=== PATIENT | male | born 1985 | race Caucasian/White ===

== ENCOUNTER 2025-08-18 10:59 | Emergency (ER) | payer OTHER, SELFPAY ==
[2025-08-18 11:21] VITALS: BP 148/73; PULSE 72; RESP 16; TEMP 36.3; O2SAT 98; BMI 24.5
--- NOTE | 2025-08-18 12:23 | ED.GENADULT ---
HPI - General Adult General Date Seen: 08/18/25 Chief complaint: Eye Problems Stated complaint: Flashing lights in R eye Time Seen by Provider: 08/18/25 11:57 History of Present Illness HPI narrative: Patient is a 40-year-old here visiting from [place]. He has been having difficulty with his right eye since Tuesday. Initially says he noticed flashing lights on the periphery of his vision kind of all the way around when he was moving his eyes. In a flashing lights went away as of Tuesday but then he started to notice floaters, and then this morning had some or flashing lights at about 2:00 a.m. in his vision on the right. Left eye seems fine, he does have a cataract on that side that has not yet been fixed. He has had cataract repair on the right eye are ready. His vision seems generally a little fuzzy in the right eye, and is affected by floaters when they were in the right spot. No eye pain, no other complaints. No significant medical history, not anticoagulated. Related Data Home Medications ?Medication ?Instructions ?Recorded ?Confirmed budesonide-formoterol HFA 80 1 inh inhalation BID PRN 08/18/25 08/18/25 mcg-4.5 mcg/actuation aerosol inhaler (Breyna) Allergies Allergy/AdvReac Type Severity Reaction Status Date / Time No Known Drug Allergies Allergy Verified 08/18/25 11:27 Exam Narrative: Exam Narrative: Vital signs reviewed In general, alert, nontoxic male. Eyes: Pupils are equal and reactive bilaterally, extraocular movements are full. Conjunctivae are normal On nondilated exam it is difficult to see significant amount of his retina, he has fairly light colored eyes and significant pupillary constriction. No obvious abnormalities. Const: Vital Signs, click to edit/add: Vital Signs - 24 hr 08/18/25 11:21 Temperature 97.4 F L Pulse Rate [Pulse Oximeter] 72 Respiratory Rate 16 Blood Pressure [Ri ght Upper Arm] 148/73 H Pulse Oximetry 98 Oxygen Delivery Me thod Room Air Course Course ED Course: I spoke with Adam Avila, on-call for [facility]. He is able to see the patient 1st thing tomorrow morning, and then we could get him to a retinal specialist if needed. He did feel that time frame would be reasonable given patient's symptoms which are suggestive of possible developing problem that he did not feel are likely factory representative of a full-thickness retinal tear at this time. Visual acuity checked here, 20 40 in the right eye, 20 40 both eyes, his vision is affected in the left eye by the cataract chronically. Discussed all this with the patient, he is comfortable with discharge. Follow-up at 8:00 a.m. tomorrow in eye clinic as planned. He has the number for the eye clinic if needed for any worsening or new symptoms or if other questions arise. Can return to the ER at any time if needed as well. Vital Signs Vital signs: Initial Vital Signs Temperature 97.4 F L 08/18/25 11:21 Temperature Source Temporal Artery Scan 08/18/25 11:21 Pulse Rate 72 08/18/25 11:21 Respiratory Rate 16 08/18/25 11:21 Blood Pressure 148/73 H 08/18/25 11:21 Blood Pressure Mean 98 08/18/25 11:21 Blood Pressure Position Sitting 08/18/25 11:21 Pulse Oximetry 98 08/18/25 11:21 Oxygen Delivery Method Room Air 08/18/25 11:21 Vital Signs Temperature 97.4 F L 08/18/25 11:21 Pulse Rate 72 08/18/25 11:21 Respiratory Rate 16 08/18/25 11:21 Blood Pressure 148/73 H 08/18/25 11:21 Pulse Oximetry 98 08/18/25 11:21 Oxygen Delivery Method Room Air 08/18/25 11:21 Temperature 97.4 F L 08/18/25 11:21 Pulse Rate 72 08/18/25 11:21 Respiratory Rate 16 08/18/25 11:21 Blood Pressure 148/73 H 08/18/25 11:21 Pulse Oximetry 98 08/18/25 11:21 Oxygen Delivery Method Room Air 08/18/25 11:21 Discharge Plan Discharge Clinical Impression: Right eye symptoms Patient Disposition: Home, Self-Care Condition: Stable Additional Instructions: Please go to [facility] at 8:00 a.m. tomorrow morning to be seen by Optometry. If you have any worsening or other concerns prior to then, you can call their on-call number at [phone], or you can text this number, with your question and they will return your message. You can return to the ER at any time if needed. Prescriptions: No Action budesonide-formoterol [Breyna] 80-4.5 mcg/actuation HFA aerosol inhaler 1 inh inhalation BID PRN Follow Up/Referrals: Provider,Not a Local [Primary Care Provider, Family Practice] Stand Alone Forms: [employer] Info Instructions
--- OUTSIDE RECORDS SUMMARY | 2025-08-18 12:24 | XMS_ITS | Clinical Summary ---
Author Organization [facility] Address [address] , [address] [place] [address] Care Team Providers Care Architectural Representative Name Role Phone Raven Zuniga Unavailable [phone] Conditions or Problems Problem Name Problem Code Onset Date Status Entry Date Provider Comment Standard Description Annotate ECZEMA [id number] (SNOMED CT) Active Sandy Zuniga EczemaASTHMA, [id number] (SNOMED CT)29Vqoayy7731/08/22Beverly StuchellIntermittent asthma Medications Medication Instructions Start Date Stop Date Generic Name [facility] Provider TRIAMCINOLONE ACETONIDE 0.1 % CREA Apply topically 2 (two) times daily as needed. (Apply 1 inch to the affected area - topical) triamcinolone [id number] StuchellALBUTEROL SULFATE HFA 108 (90 Base) MCG/ACT AERSalbuterol uzqvpqh87030873617Zjhthqc StuchellTRIAMCINOLONE ACETONIDE 0.1 % VKAK5027triamcinolone [id number] Stuchell Medications Administered No information available. Allergies, Adverse Reactions, Alerts Observed No Known Drug Allergies at Results Date Name Value Unit Range Flag Description Lab Report: Semen Analysis ROUND CELLS 3 round cells, presence of immature sperm or white blood cells in jwllw2727 SPRM MOT QGG17788*6sperm, total xhnqgo1368/08/20EMEN TOT BS64052*6semen analysis, sperm total qvzaa1336PRM FOR PRG3.5sperm forward progression PERM JPFNXA640lqeuh concentration per milliliter of cnuhm5089 TIME TO LIQNormalminsemen, liquefaction timePreload: WC REBA New Pt Preload (Questionnaire / SA / Outside Records)97TYUONGAG4.8Globulin [Mass/volume] in Rfoyq7865BILI TOTAL0.6mg/dLBilirubin.total [Mass/volume] in Serum or Dznpjf1896/08/12ALK DQHP51I/LAlkaline phosphatase [Enzymatic activity/volume] in Xilyy5376SGOT (AST)14U/LAspartate aminotransferase [Enzymatic activity/volume] in Serum or Jxxlmn9987/08/12SGPT (ALT)17U/LAlanine aminotransferase [Enzymatic activity/volume] in Serum or Zjeekf0612/08/12 PROTEIN, TOT6.6g/dLProtein [Mass/volume] in Serum or Zzpbiu0822/08/03LCNCQFE6.8 g/dLAlbumin [Mass/volume] in Serum or Fcgdhb7061/08/01LPUINSG1.7mg/dLCalcium [Moles/volume] in Serum or Iibosh7254/08/29XCQAPMTHSV6.01mg/dLCreatinine [Mass/volume] in Serum or Yqefde5556/08/68FTV91nj/dLUrea nitrogen [Mass/volume] in Serum or Jpodtg6974/08/12CO2 KCEMB60kjlj/Lcarbon dioxide, serum, total 51WQTABNGA436choz/LChloride [Moles/volume] in Serum or Edehff1129/08/12 POTASSIUM4.4mmol/LPotassium [Moles/volume] in Serum or Bkuyqj3406/08/79PWIWUN605 mmol/LSodium [Moles/volume] in Serum or Skadaf2389/08/12RBC _4.8910*6/uL erythrocyte count, whole zqwqh9322WBC COUNT4.310*3/uLleukocyte count, hgxam1359SMOK STATUSnever smokerTobacco smoking status Plan of Care No information available. Procedures Code Procedure Name Date Entry Date CPT-26358 Semen analysis Vital Signs Date Name Value Unit Description BP Diastolic 70 mm[Hg] blood pressu re, diastolic BP Systolic 110 mm[Hg] blood pressur e, systolic Body Temperature 97.6 [degF] temperat ure E&M Heart Rate 58 /min pulse rate Height 67.75 [in_us] height E&M Weight Measured 155.3 [lb_av] weight E& M Weight Measured 155.3 [lb_av] weight E& M Immunizations No information available. Advance Directives No information available.
--- OUTSIDE RECORDS SUMMARY | 2025-08-18 12:25 | XMS_ITS | Clinical Summary ---
Author Organization [facility] Address [address] [place] [address] Care Team Providers Care Track Inspecting Supervisor Name Role Phone Syd Hernandez DO Primary Care Provider [phone] Syd Hernandez DO Unavailable [phone] Allergies No known active allergies Medications MedicationSigDispense QuantityRefillsLast FilledStart DateEnd DateStatus triamcinolone acetonide (KENALOG) 0.1 % cream Indications:Eczema, unspecified typeApply topically 2 (two) times daily as needed (Apply 1 inch(s) on to effected area 80 g 3Active albuterol 90 mcg/actuation inhaler Indications:Intermittent asthma without complication, unspecified asthma severityINHALE TWO PUFFS BY MOUTH EVERY 4 TO 6 HOURS NEEDED 1 each 4Active budesonide-formoteroL (SYMBICORT) 160-4.5 mcg/actuation inhaler Indications:Intermittent asthma without complication, unspecified asthma severityInhale 2 puffs into the lungs Twice a day 3 each 5Active Active Problems ProblemNoted DateDiagnosed OwdrUjjmja95/13/2022Intermittent asthma without twagwmcsxjbe74/26/2018 Assessment & Plan (02/08/2022 1:39 PM PDT): -Provided refill of Qvar Immunizations ImmunizationAdministration DatesNext FefInn0106/07/2022,04/29/2014Influenza quad (PF)06/02/2023Influenza quad with Preservative (6 months +)06/02/2023,06/01/2022 ,06/24/2021,06/09/2020,06/21/2019,06/01/2018,06/02/2017,06/03/2016Influenza trivalent with preservative (6 months and up)06/12/2016Moderna SARS-CoV-2 BIVALENT Gijdbzvegwn43/10/2022Moderna SARS-CoV-2 Xugkfmyeblb64/03/2021, 10/06/2020,6202PytcykMAQ47/30/2019Pneumococcal Conjugate 20-Valent 2024Td (PF) 5 Lf08/29/2008Tdap12/22/2017Typhoid Live04/17/2018Varicella 12/26/2018 Family History Medical HistoryRelationCommentsMental illnessBrotherAsthmaFatherHyperlipidemia FatherHypertension (High blood pressure)FatherCancer - OtherMothercolon cancer RelationStatusCommentsBrotherFatherMother Social History Tobacco UseTypesPacks/DayYears UsedDateSmoking Tobacco: NeverPassive Smoke Exposure: NeverSmokeless Tobacco: Never Tobacco Cessation:Counseling Given: No Alcohol UseStandard Drinks/WeekCommentsYes0 (1 standard drink = 0.6 oz pure alcohol)OccasionallyHumiliation, Afraid, Rape, and Kick questionnaireAnswerDate RecordedWithin the last year, have you been afraid of your partner or ex-partner?No04/09/2022Within the last year, have you been humiliated or emotionally abused in other ways by your partner or ex-partner?No04/09/2022 Within the last year, have you been kicked, hit, slapped, or otherwise physically hurt by your partner or ex-partner?No04/09/2022Within the last year, have you been raped or forced to have any kind of sexual activity by your part ner or ex-partner?No04/09/2022ocial Connection and Isolation PanelAnswerDate RecordedIn a typical week, how many times do you talk on the phone with family, friends, or neighbors?Three times a week04/09/2022How often do you get together with friends or relatives?Twice a week04/09/2022How often do you attend sikh or yazdanism services?Never04/09/2022ctive Member of Clubs or OrganizationsNot on file04/09/2022ttends Club or Organization MeetingsNot on file04/09/2022re you , , , , never , or living with a partner?Yucyqiz3604/09/2022verall Financial Resource Strain (CARDIA)AnswerDate RecordedHow hard is it for you to pay for the very basics like food, housing, medical care, and heating?Not hard at all04/09/2022[facility] Occupational Health - Occupational Stress QuestionnaireAnswerDate RecordedDo you feel stress - tense, restless, nervous, or anxious, or unable to sleep at night because yourmind is troubled all the time - these days?Not at all04/09/2022 Exercise Vital SignAnswerDate RecordedOn average, how many days per week do you engage in moderate to strenuous exercise (like a brisk walk)?7 days04/09/2022n average, how many minutes do you engage in exercise at this level?60 min 04/09/2022Hunger Vital SignAnswerDate RecordedWithin the past 12 months, you worried that your food would run out before you got the money to buymore.Never true04/09/2022Within the past 12 months, the food you bought just didn't last and you didn't have money to get more.Never true04/09/2022RAPARE - TransportationAnswerDate RecordedIn the past 12 months, has lack of transportation kept you from medical appointments or from getting medications?No 04/09/2022In the past 12 months, has lack of transportation kept you from meetings, work, or from getting things needed for daily living?No04/09/2022 Housing Stability Vital SignAnswerDate RecordedIn the last 12 months, was there a time when you were not able to pay the mortgage or rent on time?No04/09/2022In the last 12 months, how many places have you lived?In the last 12 months, was there a time when you did not have a steady place to sleep or slept in [facility] (including now)?No2DepressionAnswerDate RecordedLast PHQ Cdwgi670Sex and Gender InformationValueDate RecordedSex Assigned at BirthNot on fileLegal YbcYinr8210/13/2016 11:31 AM PSTGender IdentityNot on file Sexual OrientationNot on fileOccupationIndustryJob Start DateJob End DateNurse practitionerNot on fileNot on fileNot on file Last Filed Vital Signs Vital SignReadingTime TakenCommentsBlood Ecgnppnr466/7708/13/2024 8:25 AM PST Kzinq549808/13/2024 8:25 AM LWWRysgrzvoshy07.3 ??C (97.3 ??F)02/03/2024 10:27 AM PDTRespiratory Rate--Oxygen Pjrzyyaahx86%2024 7:38 AM PDTInhaled Oxygen Concentration--Ygrwmu76.3 kg (155 lb)08/13/2024 8:25 AM GCMAjugtc794.2 cm (5' 7)08/13/2024 8:25 AM PSTBody Mass Index24.28110/14/2023 8:25 AM PST Plan of Treatment Health MaintenanceDue DateLast DoneCommentsDisability Eyuloknrn1984FIT (FOBT)1984HPV Vaccine (1 - 3-dose SCDM series)2011Drug, Alcohol, and Depression Ggazmizdl80/, 06/13/2023, 04/09/2022, Additional history rfwvmvVJBRH34/01/2025ovid-19 Vaccine ( season)2025 07/08/2022, 07/31/2021, 10/06/2020, Additional history existsInfluenza Vaccine (#1), 06/02/2023, 06/02/2023, Additional history existsFIT- DNA (COLOGUARD)DTaP/Tdap/Td Vaccine (2 - Td or Tdap) , 08/29/2008CT Edqxzxtgfcob155Colonoscopy 5Colorectal Cancer Lfhcmpiou17/31/3380Mcxivegelhtrc76/31/2030 09/28/2024Lipid Panel (Cholesterol Screening), 06/13/2023, 04/09/2022, Additional history existsZoster (1 of 2)4RSV Vaccines (1 - 1-dose 75+ series)2059HIV OhrvqkaijWbmyzeoue64/22/2017Varicella Vaccine Agiudfhmkrkv74/30/2019Hepatitis C WbzhxotzsMjblnsyug76/11/2021Pneumococcal Ages 0-5 Years and At Risk Patients Ages 6-49 TgwzrStmtxjvut83/13/2024, 12/26/2018 Procedures Procedure NamePriorityDate/TimeAssociated DiagnosisCommentsLIPID PANEL, LDL DIRECT, IF SWKMWEMEYGlkcyfo16/21/2025 12:13 PM PDT Pure hypercholesterolemia COLONOSCOPY EXTERNAL XAQWKXmakocy12/31/2025 HEPATITIS C VIRUS ANTIBODY,REFLEX TO HCV, RNA, QUANT LTRKlxmezs26/11/2021 8:29 AM PDT Encounter for hepatitis C screening test for low risk patient HIV-1 RNA QUANTITATIVE UEBAajzlfd66/22/2017 11:08 AM PDT Screening for STD (sexually transmitted disease) from Last 3 Months or Most Recently Relevant to Health Maintenance Results * (ABNORMAL) Lipid panel, LDL Direct, if indicated (01/16/2025 12:13 PM PDT) ComponentValueRef RangeTest MethodAnalysis TimePerformed AtPathologist ChmtaxgyjYixctfttmdl691(H)<200 mg/nRILLSL-RIMBBQNKYC-Opneoipuxip72> OR = 40 mg/dLQUEST-OKDVYVPDwrrlyhduahqd45<150 mg/sGETSKF-NHHPLICYSG-Jiukobvbqfa617(H) mg/dL (calc)QUEST-SEATTLEComment: Reference range: <100 Desirable range <100 mg/dL for primary prevention; <70 mg/dL for patients with CHD or diabetic patients with > or = 2 CHD risk factors. LDL-C is now calculated using the Triny calculation, which is a validated novel method providing better accuracy than the Friedewald equation in the estimation of LDL-C. Bg SS et al. EDUAR. 2013;310(19): 3430-8808 (http://education.Lumics/faq/GWH392) Chol/HDLC Ratio4.1<5.0 (calc)[facility] CENTERBlueYieldNon HDL Xhxoqdwxdee954(H)<130 mg/dL (calc)[facility] CENTERBlueYieldComment: For patients with diabetes plus 1 major ASCVD risk factor, treating to a non-HDL-C goal of <100 mg/dL (LDL-C of <70 mg/dL) is considered a therapeutic option. Test Performed at: [place] [address] ??[phone] JOI SALMERON MD Specimen (Source)Anatomical Location / LateralityCollection Method / Volume Collection TimeReceived TimeDefault Fxazxnkp73/21/2025 12:13 PM PDT01/16/2025 12:14 PM PDT Narrative Resulting Agency Comment Performing Organization Information: ?Site ID: NW ?Name: [facility] ?Address: [address] [place], [place] [address] [phone] ?Director: JOI SALMERON MD Authorizing ProviderResult TypeResult StatusRobert D Elder DOLAB BLOOD ORDERABLESFinal ResultPerforming OrganizationAddressCity/State/ZIP CodePhone Number [facility] [phone] * Colonoscopy External Entry (09/28/2024) Impressions Karuna Damon LPN - 09/28/2024 Received fax from [facility] with colonoscopy results dated 09/28/2024. Colonoscopy Report Colonoscopy results received, date of service: 09/28/2024 Indication: Screening Colonoscopy Location or Group: ??[facility] Findings: Biopsy done Repeat surveillance: ??7 years Patient informed by: Dr. Hairston and team Please see scanned document for full results in media. Health maintenance updated Narrative Authorizing ProviderResult TypeResult StatusMateo Hairston MDPROCEDURE/MINOR SURGICAL ORDERABLESFinal Result * Hepatitis C Virus Antibody (Screening), reflex to HCV,RNA Quant PCR (04/08/2021 8:29 AM PDT)ComponentValueRef RangeTest MethodAnalysis Time Performed AtPathologist UfwkcwuiiRnhz-ZOTAUO-BKCLDWFGXKS-REACTIVECHRISTUS [facility] Signal to Cutoff0.00<1.00CH[facility] – ATLANTAComment: HCV antibody was non-reactive. There is no laboratory evidence of HCV infection. In most cases, no further action is required. However, if recent HCV exposure is suspected, a test for HCV RNA (test code 16198) is suggested. For additional information please refer to http://education.Autocosta/faq/GML88m2 (This link is being provided for informational/ educational purposes only.) Test Performed at: [place] [address] ??[phone] JOI SALMERON MD Specimen (Source)Anatomical Location / LateralityCollection Method / Volume Collection TimeReceived TimeDefault Ljjyhoge04/11/2021 8:29 AM PDT04/08/2021 8:30 AM PDT Narrative Resulting Agency Comment Performing Organization Information: ?Site ID: NW ?Name: [facility] ?Address: [address] [place] [address] [phone] ?Director: JOI SALMERON MD Authorizing ProviderResult TypeResult StatusLeti BARRY BLOOD ORDERABLESFinal ResultPerforming OrganizationAddressCity/State/ZIP CodePhone Number [facility] [phone] * HIV-1 RNA Quantitative PCR (01/17/2017 11:08 AM PDT)ComponentValueRef Range Test MethodAnalysis TimePerformed AtPathologist SignatureHIV-1 RNA Quant<20 NOT DETECTED<20 copies/fBHZBIN-KFPWBTOIYL-0 RNA QN PCR Log copies/mL:<1.30 NOT DETECTED<1.30 Log copies/mLREHOBOTH MCKINLEY CHRISTIAN HEALTH CARE SERVICES-NORMANComment: This test was performed using the LORENA(R) AmpliPrep/ LORENA(R) TaqMan(R) HIV-1 test kit version 2.0 REPORT COMMENT: FASTING:NO Specimen (Source)Anatomical Location / LateralityCollection Method / Volume Collection TimeReceived TimeDefault Njkzlfwo11/22/2017 11:08 AM PDT01/17/2017 11:09 AM PDT Narrative Resulting Agency Comment Performing Organization Information: ?Site ID: EN ?Name: [facility] ?Address: [address] [place] [phone] ?Director: MATA THOMAS MD Authorizing ProviderResult TypeResult StatusErikarthikeyan Fowler MDLAB BLOOD ORDERABLES Final ResultPerforming OrganizationAddressCity/State/ZIP CodePhone Number [facility] [phone] from Last 3 Months or Most Recently Relevant to Health Maintenance Insurance * Guarantor: Jamil Mckay DAccount TypeRelation to PatientDate of BirthPhone Billing AddressPersonal/GzmtpsQzzp1985 [facility] [place] [phone] Care Teams Team MemberRelationshipSpecialtyStart DateEnd Syd Hernandez DO [address] [place] [address] PCP - GeneralFamily Tsczrqbh36/2/23 Syd Hernandez DO [address] [place] [address] PCP - INS PCPFamily Rrvqngxw43/2/23
== END 2025-08-18 12:52 | disposition home or self-care (01) ==
PROVIDERS: Emergency Provider Emergency Medicine
DX: H53.8 Other visual disturbances (principal)
CPT/HCPCS: 99283; 99284